=== PATIENT | female | born 2005 | race Caucasian/White ===

== ENCOUNTER 2023-02-28 16:33 | Emergency (ER) | payer OTHER, SELFPAY ==
--- NOTE | 2023-02-28 16:40 | ED.EYEPROB ---
HPI - Eye Problem General Chief complaint: Eye Problems Stated complaint: left eye scratched by cat Time Seen by Provider: 02/28/23 16:55 Source: patient and RN notes reviewed Mode of arrival: ambulatory Limitations: no limitations History of Present Illness HPI Narrative: 16-year-old female presents concern for cat scratch near her left eye. Reports this occurred this morning. She reports the scratches near the corner of the eye and she is not sure if it got in her eye. She denies any drainage. She denies swelling. She denies vision changes chief complaint: other (Cat scratch near the eye) Related Data Home Medications Medication Instructions Recorded Confirmed atomoxetine 40 mg capsule mg PO 02/28/23 cholecalciferol (vitamin D3) 50 02/28/23 mcg (2,000 unit) capsule escitalopram oxalate 10 mg tablet mg 02/28/23 testosterone cypionate 200 mg/mL mg 02/28/23 intramuscular oil Allergies Allergy/AdvReac Type Severity Reaction Status Date / Time No Known Allergies Allergy Mild Unverified 02/28/23 16:56 Review of Systems Review of Systems: CONSTITUTIONAL: Denies malaise, chills, sweats, or fever. EYES: Denies redness, or discharge. ENT: Denies rhinorrhea, congestion, swollen lips, swollen tongue SKIN: Reports his cat scratch near her left eye NEUROLOGIC: Denies headache. All systems reviewed & are unremarkable except as noted in HPI and below PMFSH Comments At time of signature, agree with nursing past medical, surgical, social and family history. There is no relevant family history pertinent to the presenting complaint Exam Narrative: GENERAL: Well-appearing, well-nourished, and in no acute distress. HEAD: Normocephalic, atraumatic. EYES: PERRLA, conjunctivae clear, sclera clear, and EOMI. No corneal abrasion noted upon was lamp exam, see note ENT: Mucous membranes moist. Oropharynx without edema, erythema or lesions. NECK: Supple. No lymphadenopathy CHEST: Clear to auscultation. No respiratory distress. HEART: Regular rate and rhythm. SKIN: Warm, dry. Area of erythema noted on the skin at the corner of the left eye, slightly raised without induration, fluctuation, drainage NEURO: Alert and oriented x3. PSYCH: Normal mood and affect Course Course Emergency Course: Patient is aware of diagnosis, understands and agrees to treatment plan. Anticipatory guidance given. Patient agrees to follow-up as directed and is aware of reasons to seek care at the emergency department. Portions of this record may have been created with voice recognition software Level of Care: Express Care Visit Vital Signs Vital signs: Reviewed. Procedures Other Procedure Procedure 1: Other Procedure: Tetracaine 1 gtt instilled in left eye, fluorescein stain applied. No corneal abrasion noted upon dang lamp exam. Eye washed with NS 100 ml. No foreign bodies or Annabella sign noted. MDM - Eye Problem MDM Narrative Medical decision making narrative: Exam findings show no acute concerns or changes; patient is non-toxic appearing and is in no distress. Patient is appropriate for outpatient treatment and follow-up. Critical Care Time Critical Care Time Critical Care Time: No Discharge Plan Discharge Clinical Impression: Cat scratch of face Patient Disposition: Home, Self-Care Condition: Stable Instructions: Antibiotic Form, Cat Scratch Disease (ED) Additional Instructions: Please follow up with your Primary Care Doctor for re-evaluation. Area; apply moist heat 3-4 times daily for 10-15 minutes. Take Motrin 600mg every 8 hours with food for pain. Please take Antibiotics as directed. If you experience any worsening redness, swelling, streaking (red lines), fever or chills please go to the ER Prescriptions: New amoxicillin-pot clavulanate 875-125 mg tablet 1 tablet PO Q12H 10 Days Qty: 20 0RF No Action testosterone cypionate 200 mg/mL oil escitalopram oxalate
[2023-02-28 16:48] VITALS: BP 151/98; PULSE 98; RESP 16; TEMP 37.3; O2SAT 99
== END 2023-02-28 17:16 | disposition home or self-care (01) ==
PROVIDERS: Emergency Provider Nurse Practitioner; PCP Pediatrics
DX: S00.212A Abrasion of left eyelid and periocular area, initial encounter (principal); W55.03XA Scratched by cat, initial encounter
CPT/HCPCS: 99213; A9270; G0463

== ENCOUNTER 2023-10-09 01:26 | Emergency (ER) | payer OTHER, SELFPAY ==
--- NOTE | ~2023-10-09 | XR_ITS ---
EXAMINATION: XR chest 2V 10/09/2023 02:27 INDICATION: Chest pain PROCEDURE: 2 view chest COMPARISON: No prior studies for comparison. FINDINGS: The lungs are clear. The cardiomediastinal silhouette is within normal limits. There are no pleural effusions. There is no pneumothorax suspected. IMPRESSION: 1: NO ACUTE CARDIOPULMONARY DISEASE. Reviewed, dictated and finalized at location A.
--- NOTE | 2023-10-09 01:30 | ECG_ITS ---
Measurements Intervals [place] Rate: 113 P: ND: 0 QRS: 54 QRSD: 89 T: 17 QT: 305 QTc: 419 Interpretive Statements SINUS TACHYCARDIA BORDERLINE ST-T WAVE ABNORMALITY- INF/LAT LEADS ABNORMAL ECG NO PREVIOUS ECG AVAILABLE FOR COMPARISON Electronically Signed On 10-09-2023 7:29:36 CDT by Goyo Noel D.O.
[2023-10-09 01:37] VITALS: BP 166/111; PULSE 133; RESP 18; TEMP 36.3; O2SAT 100
[2023-10-09 02:07] LABS: Alanine Aminotransferase 54 U/L (6-35); Albumin Level 4.9 g/dL (3.5-5.1); Alkaline Phosphatase 102 U/L (38-126); Anion Gap 7 mmol/L (8-16); Aspartate Amino Transferase 42 U/L (14-36); Bilirubin,Total 0.6 mg/dL (0.2-1.3); Blood Urea Nitrogen 14 mg/dL (7-17); Calcium 9.7 mg/dL (8.4-10.2); Carbon Dioxide 25 mmol/L (22-30); Chloride 106 mmol/L (98-107); Estimated CRCL calculation 132 ml/min; Estimated Glomerular Filt Rate > 60; Glucose 139 mg/dL (65-110); Lipase 84 U/L (23-300); Potassium 3.3 mmol/L (3.4-5.0); Sodium 138 mmol/L (137-145)
[2023-10-09 02:10] LABS: Prothrombin Time 13.5 Seconds (11.1-14.7)
[2023-10-09 02:14] LABS: Basophils Percent Auto 0.4 % (0.2-1.2); Eosinophils Absolute Auto 0.3 K/mm3 (0-0.3); Eosinophils Percent Auto 2.8 % (0-4.4); Hematocrit 46.7 % (37.0-47.0); Hemoglobin 15.8 g/dL (12.0-15.0); Immature Granulocyte Absolute 0.03 K/mm3 (0.00-0.031); Immature Granulocyte Percent A 0.3 % (0-0.5); Lymphocytes Absolute Auto 3.49 K/mm3 (0.9-3.2); Lymphocytes Percent Auto 31.1 % (18.3-44.2); Mean Corpuscular HGB Conc 33.8 g/dl (32-36); Mean Corpuscular Hemoglobin 29.4 pg (26-34); Mean Platelet Volume 11.3 fl (7.4-10.4); Monocytes Absolute Auto 0.9 K/mm3 (0.1-0.6); Monocytes Percent Auto 7.6 % (2.6-8.5); Neutrophils Absolute Auto 6.5 K/mm3 (1.3-6.7); Neutrophils Percent Auto 57.8 % (45.5-73.1); Platelet Count Result 350 k/mm3 (150-375); Red Blood Count 5.37 M/mm3 (4.2-5.4); Red Cell Distribution Width 12.8 % (11.5-14.5); White Blood Count 11.2 K/mm3 (4.5-10.0)
[2023-10-09 02:18] LABS: Troponin I < 0.012 ng/mL (0.000-0.034)
[2023-10-09 02:25] VITALS: PULSE 118; O2SAT 100
[2023-10-09 02:26] VITALS: O2SAT 100
[2023-10-09 02:27] VITALS: BP 141/101; PULSE 112; RESP 16; O2SAT 100
[2023-10-09 04:00] LABS: D Dimer < 0.27 ug/mL (<0.48)
--- NOTE | 2023-10-09 04:09 | ED.CHESTPAIN ---
HPI - Chest Pain General Chief Complaint: Chest Pain Stated Complaint: chest pain, L shoulder blade burning Time Seen by Provider: 10/09/23 02:19 History of Present Illness HPI narrative: 18-year-old transitioning male presents to the emergency department for evaluation of left-sided chest pain. Patient did have an upper respiratory infection/viral infection approximately 2 weeks ago and has had persistent cough. Patient began developing left-sided chest pain that is worsened with inspiration. Patient describes the pain as being sharp. Patient does have a prior cardiac history. Patient is on hormone therapy for the last 1.5 years. Patient denies any prior history of PE or DVT. Related Data Home Medications Medication Instructions Recorded Confirmed atomoxetine 40 mg capsule mg PO 02/28/23 cholecalciferol (vitamin D3) 50 02/28/23 mcg (2,000 unit) capsule escitalopram oxalate 10 mg tablet mg 02/28/23 testosterone cypionate 200 mg/mL mg 02/28/23 intramuscular oil Allergies Allergy/AdvReac Type Severity Reaction Status Date / Time lamotrigine [From Lamictal] Allergy Rash Verified 10/09/23 01:27 aripiprazole [From Abilify] AdvReac Other Verified 10/09/23 01:28 Review of Systems Review of Systems: All systems reviewed & are unremarkable except as noted in HPI and below Exam Narrative: APPEARANCE: Well appearing, no pain, no distress, well-nourished. HEAD: normocephalic, atraumatic. EYES: PERRLA/EOMI, conjunctivae clear. NOSE: Normal no drainage EARS:TMS clear with good light reflex. THROAT: Pharynx clear, no exudate. NECK: Supple. No adenopathy, no masses. RESPIRATORY: Airway patent, respirations nonlabored. Clear to auscultation bilaterally, no rales, rhonchi, wheezing. CARDIOVASCULAR: Regular rate and rhythm without murmurs rubs or gallops. ABDOMINAL: Soft, nontender, nondistended, normal bowel sounds MUSCULOSKELETAL: Moves all extremities. Strength/ROM intact, No edema, No calf tenderness. NEURO: Alert. Cranial nerves II through XII intact. Good gait. Good coordination SKIN: Warm, dry. Normal Color PSYCHIATRIC: Normal affect/mood. Course Vital Signs Vital signs: Vital Signs Temperature 97.3 F L 10/09/23 01:37 Pulse Rate 133 H 10/09/23 01:37 Respiratory Rate 18 10/09/23 01:37 Blood Pressure 166/111 H 10/09/23 01:37 Pulse Oximetry 100 10/09/23 01:37 Oxygen Delivery Room Air 10/09/23 01:37 Temperature 97.3 F L 10/09/23 01:37 Pulse Rate 72 10/09/23 04:54 Respiratory Rate 15 10/09/23 04:54 Blood Pressure 143/73 H 10/09/23 04:54 Pulse Oximetry 99 10/09/23 04:54 Oxygen Delivery Room Air 10/09/23 02:26 MDM - Chest Pain MDM Narrative Medical decision making narrative: 18-year-old transitioning male presents the emergency department for evaluation of left-sided chest pain. Patient is afebrile with mild leukocytosis and a stable hemoglobin 15.8. D-dimer was negative. Patient had negative serial troponins. Chest x-ray showed no acute cardiopulmonary abnormality. Differential Diagnosis Differential diagnosis: Likely fracture of rib, atypical chest pain, costochondritis, chest pain and biliary colic Lab Data Attestation: I reviewed the patient's lab results. 10/09/23 01:50 10/09/23 01:49 Labs: Lab Results 10/09/23 10/09/23 10/09/23 Range/Units 01:49 01:50 04:50 WBC 11.2 H (4.5-10.0) K/mm3 RBC 5.37 (4.2-5.4) M/mm3 Hgb 15.8 H (12.0-15.0) g/dL Hct 46.7 (37.0-47.0) % MCV 87.0 (80-100) fl MCH 29.4 (26-34) pg MCHC 33.8 (32-36) g/dl RDW 12.8 (11.5-14.5) % Plt Count 350 (150-375) k/mm3 MPV 11.3 H (7.4-10.4) fl Immature Gran % (Auto) 0.3 (0-0.5) % Neut % (Auto) 57.8 (45.5-73.1) % Lymph % (Auto) 31.1 (18.3-44.2) % [place] % (Auto) 7.6 (2.6-8.5) % Eos % (Auto) 2.8 (0-4.4) % Baso % (Auto) 0.4 (0.2-1.2) % Lymph # (Auto) 3.49 H (0.9-3.2) K/mm3 Mo
--- NOTE | 2023-10-09 04:15 | PC.NURSE ---
Per EDP Dr. Johnson change 15mg IVP Toradol to 30mg IM
[2023-10-09] MEDS: KETOROLAC 30 MG/ML VIAL (*BKC) IM (04:18)
--- NOTE | 2023-10-09 04:34 | ECG_ITS ---
Measurements Intervals [place] Rate: 73 P: 25 IA: 149 QRS: 60 QRSD: 88 T: 21 QT: 330 QTc: 364 Interpretive Statements SINUS RHYTHM WITH SINUS ARRHYTHMIA BASELINE ARTIFACT- I, III, AVL NORMAL ECG COMPARED TO ECG 10/09/2023 01:39:34 SINUS RHYTHM NOW PRESENT SINUS ARRHYTHMIA NOW PRESENT Electronically Signed On 10-09-2023 7:30:25 CDT by Goyo Noel D.O.
[2023-10-09 04:54] VITALS: BP 143/73; PULSE 72; RESP 15; O2SAT 99
[2023-10-09 05:20] LABS: Troponin I < 0.012 ng/mL (0.000-0.034)
== END 2023-10-09 05:42 | disposition home or self-care (01) ==
PROVIDERS: Emergency Provider Emergency Medicine; PCP Pediatrics
DX: R07.89 Other chest pain (principal); R00.0 Tachycardia, unspecified; R94.31 Abnormal electrocardiogram [ECG] [EKG]
CPT/HCPCS: 36415; 71046; 80053; 83690; 84484; 85025; 85380; 85610; 85730; 93005; 96372; 99284; J1885

== ENCOUNTER 2024-01-16 14:43 | Outpatient (CLI) | payer OTHER, SELFPAY ==
--- NOTE | ~2024-01-16 | XR_ITS ---
EXAMINATION: XR lumbar spine 2-3V DATE: 01/16/2024 15:05 INDICATION: Back pain. TECHNIQUE: 3 views of lumbar spine were obtained. COMPARISON: None. FINDINGS: Bone alignment is normal. Vertebral body heights and intervertebral disc heights are normal . The facet joints are normal. There is an intrauterine device in expected position. IMPRESSION: 1. Normal lumbar spine. Reviewed, dictated and finalized at location E. IMPRESSION: 1. Normal lumbar spine.
--- NOTE | ~2024-01-16 | XR_ITS ---
EXAMINATION: XR sacrum coccyx min 2V DATE: 01/16/2024 15:05 INDICATION: Back pain. TECHNIQUE: 3 views of the sacrum and coccyx were obtained. COMPARISON: None. FINDINGS: Alignment is normal. No fracture. The sacroiliac joints are normal. There is an intrauterin e device in expected position. IMPRESSION: 1. Normal sacrum and coccyx. Reviewed, dictated and finalized at location E.
--- NOTE | ~2024-01-16 | XR_ITS ---
EXAMINATION: XR thoracic spine 3V DATE: 01/16/2024 15:05 INDICATION: Back pain. TECHNIQUE: 3 views of thoracic spine were obtained. COMPARISON: None. FINDINGS: There is 6 degrees dextrocurvature of upper thoracic spine. Vertebral body heights are norm al. There are endplate osteophytes at multiple levels. Intervertebral disc heights are normal. IMPRESSION: 1. Mild thoracic spondylosis. Reviewed, dictated and finalized at location E.
== END 2024-01-16 14:44 | disposition home or self-care (01) ==
PROVIDERS: PCP Pediatrics; Visit Provider Pediatrics
DX: M54.50 Low back pain, unspecified (principal); M47.894 Other spondylosis, thoracic region
CPT/HCPCS: 72072; 72100; 72220